=== PATIENT | male | born 1960 | race Caucasian/White ===

== ENCOUNTER 2024-10-08 15:58 | Inpatient (IN) | payer MEDICARE, SELFPAY ==
[2024-10-08 12:48] VITALS: BP 161/62
[2024-10-08 13:17] VITALS: BMI 32.1
[2024-10-08 13:36] LABS: % Basophils 1.1 % (0-2); % Eosinophils 3.1 % (0-6); % Immature Granulocytes 0.3 % (0-0.5); % Lymphocytes 22.3 % (20.5-51.1); % Monocytes 9.5 % (1.7-9.3); % Neutrophils 63.7 % (42.2-75.2); Absolute Basophils 0.1 10^3/uL (0-0.2); Absolute Eosinophils 0.2 10^3/uL (0-0.7); Absolute Lymphocytes 1.5 10^3/uL (1.2-3.4); Absolute Monocytes 0.6 10^3/uL (0.1-0.6); Absolute Neutrophils 4.2 10^3/uL (1.4-6.5); Hematocrit 47.1 % (39.0-52.0); Hemoglobin 17.1 g/dL (13.0-18.0); Mean Corp Hgb Conc. 36.3 g/dL (33.0-37.0); Mean Corpuscular Hgb 36.7 pg (27.0-31.0); Mean Corpuscular Volume 101.1 fL (80.0-94.0); Mean Platelet Volume 8.9 fL (7.4-10.4); Nucleated Red Blood Cells % 0 % (-); Platelet Count 199 10^3/uL (130-400); Red Blood Cell Count 4.66 10^6/uL (4.70-6.10); Red Cell Dist. Width 15.6 % (11.5-14.5); White Blood Cell Count 6.6 10^3/uL (4.8-10.8)
[2024-10-08 13:52] LABS: ALT (SGPT) 45 U/L (0-50); AST (SGOT) 49 U/L (17-59); Albumin 4.1 g/dl (3.5-5.0); Alcohol 39 mg/dl; Alkaline Phosphatase 66 U/L (38-126); Blood Urea Nitrogen 9 mg/dl (9-20); Calcium 9.3 mg/dl (8.4-10.2); Carbon Dioxide 27 mmol/L (22-30); Chloride 104 mmol/L (98-107); Estimated Creatinine Clearance 122 ml/min; Glucose 106 mg/dl (70-99); INR 0.99; PT 13.4 Sec (11.4-14.6); Potassium 3.9 mmol/L (3.5-5.1); Sodium 139 mmol/L (135-145); Total Bilirubin 1.2 mg/dl (0.2-1.3); eGFR > 60.00
--- NOTE | 2024-10-08 13:53 | ED.GENMED ---
History of Present Illness
General
Chief Complaint: Rectal Bleeding
Source: patient
Exam Limitations: none
Time Seen by Provider: 10/08/24 13:31
History of Present Illness
History of Present Illness:
64yoM with a history of tobacco use presenting for evaluation of rectal bleeding. Patient has been having intermittent rectal bleeding over the past year or so. He had 3 episodes of bright red rectal bleeding today. He states the blood was
pouring out of him. He has never had this severe of bleeding before. He also reports shortness of breath primarily with exertion over the past week as well as intermittent lower chest discomfort. He feels lightheaded but denies any syncope.
Additionally, he has been having a nagging pain in his lower abdomen over the past week. He has not seen a PCP in about 30 years. He smokes 1 pack/day and drinks about 5-8 shots of whiskey daily. He has never had a colonoscopy before.
Past History
Past History
ED Past Medical History: None
ED Past Surgical History: None
Social History
Tobacco: Smoker
Phy Exam
General Physical Exam
General Presentation: well appearing and no apparent distress
General Skin: warm and dry
General Habitus: normal
General Mental: alert
ENT Exam
ENT Exam: normocephalic
Cardiovascular Exam
Cardiovascular Exam: regular rate/rhythm and no murmur
Pulmonary Exam
Pulmonary Exam: lungs clear, no respiratory distress, no rales, no crackles and no rhonchi
Gastrointestinal Exam
Gastrointestinal Exam: non tender, soft and other (Abdomen obese. Soft, non-tender in all quadrants. )
Stool: other (No stool obtained on rectal exam. No external hemorrhoids visualized. )
Neurological Exam
Neurological Exam: alert
Josué Coma Scale
Eye Opening: Spontaneous
Verbal Response: Oriented
Motor Response: Obeys Commands
GCS Total Score: 15
Skin Exam
Skin Exam: normal color and warm/dry
Psychiatric Exam
Psychiatric Exam: normal mood/affect
Course
Orders/Labs/Results
Orders:
Orders
10/08/24 12:38
Electrocardiogram (*1) Urgent
Reason for Study: Chest Pain
EKG- Treatment ONCE
10/08/24 13:28
Type+Screen Urgent
Alcohol Urgent
Complete Blood Count/With Diff Urgent
Comprehensive Metabolic Panel Urgent
PTT Urgent
Prothrombin Time Urgent
Troponin I Urgent
10/08/24 13:51
CT Abd/pelvis W Iv Cont Urgent
Comment:
Reason For Exam: lower abd pain, rectal bleeding
CR Chest - 2 Views Urgent
Comment:
Reason For Exam: SOB
10/08/24 14:18
ABO2 Urgent
BBK Wristband Number:
Associate notified that ABO2 has been ordered: [id number]
Date: 10/08/24
Time: 13:50
Director Of Leadership Development ID: [id number]
Abnormal Lab Results
10/08/24
13:28
RBC 4.66 L 10^6/uL
(4.70-6.10)
MCV 101.1 H fL
(80.0-94.0)
MCH 36.7 H pg
(27.0-31.0)
RDW 15.6 H %
(11.5-14.5)
Monocytes % 9.5 H %
(1.7-9.3)
Glucose 106 H mg/dl
(70-99)
10/08/24 13:28
10/08/24 13:28
Vital Signs
Initial and Last Documented VS:
Initial Vital Signs
Temp Pulse Resp BP Pulse Ox
98.3 F 98 16 161/62 98
10/08/24 12:48 10/08/24 12:48 10/08/24 12:48 10/08/24 12:48 10/08/24 12:48
Last Documented Vital Signs
Temp Pulse Resp BP Pulse Ox
98.7 F 86 20 146/81 100
10/08/24 15:28 10/08/24 14:09 10/08/24 14:09 10/08/24 14:09 10/08/24 14:09
MDM/Problems Addressed
Differential Diagnosis Includes:
64yoM here with rectal bleeding. 3 episodes of BRBPR. Also c/o lightheadedness, exertional dyspnea, chest pain, and lower abd discomfort x 1 week. Has not seen a PCP in 30 years. Admits to daily alcohol use. He is mildly hypertensive with otherwise
stable vitals. He is well appearing in no distress. No stool obtained on rectal exam. Differential diagnosis includes but is not limited to: hemorrhoidal bleeding, diverticular bleeding, AVM, malignancy, symptomatic anemia
Initial ED plan: Check cardiac labs, coags, type and screen, EKG, CXR, and CT abdomen.
*EKG
Interpreted by ED Provider?: Yes
EKG Intrepretation Date: 10/08/24
Heart Rate: 96
Rate: normal
Rhythm: sinus
[place]: left axis deviation
Interval: normal interval
QRS Pattern: normal QRS
Ischemia: no ischemia
*Critical Care Note
Total Time (30-74mins, 75-104mins- exclusive of procedures): Not Applicable
Update Note
Update Note:
Hemoglobin WNL at 17.1. Remainder of labs unremarkable. EKG shows NSR without ischemic changes and troponin WNL. CXR is clear. CT abdomen shows mild colitis. Patient had an additional episode of rectal bleeding during ED stay. Given active bleeding
and no reliable outpatient follow-up, will admit for further management.
ED Attending Note
-
Portions of this chart may have been created with voice recognition software.� Occasional wrong word or��sound alike� substitutions may have occurred due to the inherent limitations of voice recognition software.
Discharge Plan
Departure
Patient Disposition: Admit
Date of Disposition: 10/08/24
Time of Disposition: 15:18
Presentation/result/management discussed w/ accepting MD/DO: Hospitalist
Discharge Problem:
Rectal bleeding, Colitis, Shortness of breath
Prescriptions:
No Action
Medical Marijuana
2 puff inhalation DAILYPRN PRN (Reason: STRESS)
Referrals:
NONE,* [Family Provider] -
Interventions
Interventions:
*Risk Screen - Suicide Last Done: 10/08/24 12:50
*General Assessment Last Done: 10/08/24 13:18
*Neglect/Abuse Screening Last Done: 10/08/24 12:50
*ED- Fall Risk Assessment Last Done: 10/08/24 13:18
*ED COVID-19 Vaccine History Last Done: 10/08/24 13:18
EO-Tpkiob-Hfnayrvxdz Assessment Last Done: 10/08/24 13:24
ED- Cardiac Assessment Last Done: 10/08/24 13:24
ED- Pulmonary Assessment Last Done: 10/08/24 13:24
Discharge Date and Time
Print Language: FAROESE
[2024-10-08 14:09] VITALS: BP 146/81
[2024-10-08 14:11] LABS: Troponin I < 0.012 ng/ml
--- NOTE | 2024-10-08 15:53 | HPS.HSE ---
Family Physician
-
Family Physician: * NONE
Chief Complaint
-
bloody diarrhea
History of Present Illness
64-year-old male past medical history of presenting for rectal bleeding. Patient has been having intermittent rectal bleeding/diarrhea for the past day. He had 3 episodes of bright red blood today. He states blood was pouring out of him. He
feels lightheaded but denies passing out. He has been having nagging pain in the bilateral lower abdomen over the past week. Denies any fevers or chills. Denies any recent travel or eating outside food. Denies nausea or vomiting.
He smokes 1 pack of cigarettes per day and drinks 5-8 shots of whiskey daily. He has not seen primary care physician in 30 years. He never had a colonoscopy before.
No recent antibiotic use.
Uses marijuana sometimes.
Medical History
Past Medical History
Past Medical History: Reports None
Past Surgical History: Reports None
Social History
Tobacco: Smoker
Alcohol: Daily
Drug: Marijuana
Family History
Family History: Not pertinent
Allergies / Home Medications
Allergies reflects when Allergies were last updated in [facility].
Home Medications with original date entered in [facility]
Allergy/Medication List:
Allergies
Allergy/AdvReac Type Severity Reaction Status Date / Time
No Known Allergies Allergy Verified 10/08/24 12:52
Home Medications
Medical Marijuana 2 puff inhalation DAILYPRN PRN STRESS 10/08/24
Review of Systems
-
History Source: Patient
A 12 point ROS was completed and negative except as noted: Yes
Constitutional: Reports No Symptoms
EENT: Reports No Symptoms
Respiratory: Reports No Symptoms
Cardiac: Reports No Symptoms
Abdomen/GI: Reports No Symptoms
: Reports See HPI
Musculoskeletal: Reports No Symptoms
Skin: Reports No Symptoms
Neurological: Reports No Symptoms
Endocrine: Reports No Symptoms
Hematologic/Lymphatic: Reports No Symptoms
Psych: Reports No Symptoms
Physical Exam
Vital Signs
Vital Signs
Temp Pulse Resp BP Pulse Ox
98.7 F 86 20 146/81 100
10/08/24 15:28 10/08/24 14:09 10/08/24 14:09 10/08/24 14:09 10/08/24 14:09
Physical Exam
General: Well Developed, Well Nourished and No Apparent Distress
HEENT: NormoCephalic, Moist mucous membranes and Atraumatic
Respiratory: Clear
Cardiac: S1/S2 and Regular Rhythm; No Murmur or Rub
GI: Soft, Non Distended, Normal Bowel Sounds and Tender (lower quadrants); No Organomegaly
Rectal: Deferred by Provider
Musculoskeletal: No Clubbing, No Cyanosis and No Edema
Skin: No Rash
Neuro: Nonfocal/grossly intact
Laboratory Results
-
10/08/24 13:28
10/08/24 13:28
Laboratory Results
PT 13.4 Sec (11.4-14.6) 10/08/24 13:28
INR 0.99 10/08/24 13:28
APTT 26.0 Sec (23.4-35.0) 10/08/24 13:28
Total Bilirubin 1.2 mg/dl (0.2-1.3) 10/08/24 13:28
AST 49 U/L (17-59) 10/08/24 13:28
ALT 45 U/L (0-50) 10/08/24 13:28
Alkaline Phosphatase 66 U/L (38-126) 10/08/24 13:28
Troponin I < 0.012 ng/ml 10/08/24 13:28
Data Reviewed
-
Lab Data: Labs Reviewed by me
Old Records: Reviewed
Impression/Plan
-
IMPRESSION:
PLAN:
# Acute infectious versus ischemic colitis with rectal bleeding
-CT abdomen pelvis shows mild colitis involving the descending and sigmoid colon
-Hemoglobin 17
-N.p.o.
-IV fluids
-Check stool culture
-Zosyn
Active smoker
-Nicotine patch
Daily alcohol use
-Thiamine and folate
-Alcohol withdrawal protocol
Marijuana user
Full code
DVT prophylaxis�SCDs
N.p.o.
[2024-10-08 16:48] VITALS: BP 165/96
[2024-10-08] MEDS: ATIVAN 1 MG PO ×2 (17:05→20:35)
[2024-10-08] MEDS: NSS 1000 IV (17:14)
[2024-10-08] MEDS: ZOSYN 50 IV (17:15)
[2024-10-08 17:23] VITALS: BMI 31.8
[2024-10-08] MEDS: THIAMINE INJECTION 200 MG IV (20:29)
[2024-10-08 23:00] VITALS: BP 138/66
[2024-10-09] MEDS: ZOSYN 50 IV ×4 (00:03→17:04)
[2024-10-09] MEDS: NSS 1000 IV ×2 (05:52→17:04)
[2024-10-09 06:01] LABS: ALT (SGPT) 36 U/L (0-50); AST (SGOT) 36 U/L (17-59); Albumin 3.4 g/dl (3.5-5.0); Alkaline Phosphatase 61 U/L (38-126); Blood Urea Nitrogen 10 mg/dl (9-20); Calcium 8.9 mg/dl (8.4-10.2); Carbon Dioxide 30 mmol/L (22-30); Chloride 103 mmol/L (98-107); Estimated Creatinine Clearance 99 ml/min; Glucose 113 mg/dl (70-99); Potassium 3.9 mmol/L (3.5-5.1); Sodium 137 mmol/L (135-145); Total Bilirubin 1.6 mg/dl (0.2-1.3); eGFR > 60.00
[2024-10-09 06:28] LABS: % Basophils 0.8 % (0-2); % Eosinophils 5.2 % (0-6); % Immature Granulocytes 0.3 % (0-0.5); % Lymphocytes 25.3 % (20.5-51.1); % Monocytes 10.5 % (1.7-9.3); % Neutrophils 57.9 % (42.2-75.2); Absolute Basophils 0.1 10^3/uL (0-0.2); Absolute Eosinophils 0.3 10^3/uL (0-0.7); Absolute Lymphocytes 1.5 10^3/uL (1.2-3.4); Absolute Monocytes 0.6 10^3/uL (0.1-0.6); Absolute Neutrophils 3.5 10^3/uL (1.4-6.5); Hematocrit 37.5 % (39.0-52.0); Hemoglobin 13.3 g/dL (13.0-18.0); Mean Corp Hgb Conc. 35.5 g/dL (33.0-37.0); Mean Corpuscular Hgb 36.4 pg (27.0-31.0); Mean Corpuscular Volume 102.7 fL (80.0-94.0); Mean Platelet Volume 9.6 fL (7.4-10.4); Nucleated Red Blood Cells % 0 % (-); Platelet Count 180 10^3/uL (130-400); Red Blood Cell Count 3.65 10^6/uL (4.70-6.10); Red Cell Dist. Width 15.7 % (11.5-14.5)
[2024-10-09 07:24] VITALS: BP 144/79
--- NOTE | 2024-10-09 07:47 | W.PN.HOSP.TC ---
Today's Communication/Plan
-
See plan
Assessment / Plan
Assessment / Plan
Physical Exam
General: Well Developed, Well Nourished and No Apparent Distress
HEENT: Normocephalic, Moist mucous membranes and Atraumatic
Respiratory: Clear to Auscultation Bilaterally
Cardiac: S1/S2 and Regular Rhythm
GI: Soft, Non Distended, Normal Bowel Sounds and Tender (bilateral lower quadrants)
Musculoskeletal: No Cyanosis and No Edema
Skin: Warm. Dry.
Neuro: AAOx3. Nonfocal/grossly intact.
Assessment/Plan
64-year-old male with past medical history of presenting for rectal bleeding. Patient has been having intermittent rectal bleeding/diarrhea for the about 1 day prior to presentation. He had 3 episodes of bright red blood on the day of presentation.
He stated that blood was pouring out of him and he felt lightheaded but denied passing out. He has been having nagging pain in the bilateral lower abdomen over the past week prior to presentation. Denied any fevers or chills. Denied any recent
travel or eating outside food. Denied nausea or vomiting. He smokes 1 pack of cigarettes per day and drinks 5-8 shots of whiskey daily. He has not seen primary care physician in 30 years. He never had a colonoscopy before. No recent antibiotic
use. Uses marijuana sometimes.
# Acute infectious versus ischemic colitis with rectal bleeding
-CT abdomen pelvis shows mild colitis involving the descending and sigmoid colon
-Patient stated that he has never had a colonoscopy
-Hemoglobin 17 --> 13.3
-Blood transfusion consent has been obtained from the patient, I explained to the patient the risks and benefits of blood transfusion
-Maintain Hgb>7 with PRBC transfusion if needed
-N.p.o. for now
-IV fluids
-Stool culture ordered, follow-up
-Continue Zosyn for now
-Bedrest for now
-GI consulted, appreciate their evaluation and recommendations
#Active smoker
-Nicotine patch
#Daily alcohol use
-Thiamine and folate
-Alcohol withdrawal protocol
#Marijuana user
Full code
DVT prophylaxis�SCDs. No chemical DVT prophylaxis given GI bleed.
N.p.o.
Anticipated Discharge: > 48 hours
Subjective/Interval History
-
Date of Service: October 09, 2024
Patient was seen and examined. He reported another episode of bright red blood per rectum overnight, and is still having some bilateral lower abdominal pain.
Objective Data
-
Labs:
Laboratory Results
10/09/24
05:09
WBC 6.0
Hgb 13.3 D
Hct 37.5 L
Plt Count 180
Sodium 137
Potassium 3.9
Chloride 103
Carbon Dioxide 30
BUN 10
Creatinine 1.1
Glucose 113 H
Calcium 8.9
Total Bilirubin 1.6 H
AST 36
ALT 36
Alkaline Phosphatase 61
Vital Signs:
Vital Signs
Temp Pulse Resp BP Pulse Ox
98.2 F 71 16 144/79 98
10/09/24 07:24 10/09/24 07:24 10/09/24 07:24 10/09/24 07:24 10/09/24 07:24
I&O
10/08/24 10/09/24 10/10/24
06:59 06:59 06:59
Intake Total 1939
Balance 1939
[2024-10-09] MEDS: FOLVITE 1 MG PO (08:22)
[2024-10-09] MEDS: THIAMINE INJECTION 200 MG IV ×2 (08:22→20:14)
[2024-10-09] MEDS: NICODERM TRANSDERMAL 14 MG TRANSDERM (08:23)
[2024-10-09 15:19] VITALS: BP 165/88
[2024-10-09 20:46] LABS: Hematocrit 35.7 % (39.0-52.0)
[2024-10-09 23:00] VITALS: BP 162/85
[2024-10-10] MEDS: ZOSYN 50 IV ×3 (00:28→12:20)
[2024-10-10] MEDS: NSS 1000 IV ×2 (00:29→14:29)
[2024-10-10 06:02] LABS: % Basophils 0.8 % (0-2); % Immature Granulocytes 0.4 % (0-0.5); % Lymphocytes 23.7 % (20.5-51.1); % Monocytes 7.2 % (1.7-9.3); % Neutrophils 61.9 % (42.2-75.2); Absolute Eosinophils 0.3 10^3/uL (0-0.7); Absolute Lymphocytes 1.2 10^3/uL (1.2-3.4); Absolute Monocytes 0.4 10^3/uL (0.1-0.6); Absolute Neutrophils 3.2 10^3/uL (1.4-6.5); Hematocrit 36.6 % (39.0-52.0); Hemoglobin 13.2 g/dL (13.0-18.0); Mean Corp Hgb Conc. 36.1 g/dL (33.0-37.0); Mean Corpuscular Hgb 36.3 pg (27.0-31.0); Mean Corpuscular Volume 100.5 fL (80.0-94.0); Mean Platelet Volume 9.4 fL (7.4-10.4); Nucleated Red Blood Cells % 0 % (-); Platelet Count 163 10^3/uL (130-400); Red Blood Cell Count 3.64 10^6/uL (4.70-6.10); Red Cell Dist. Width 15.2 % (11.5-14.5); White Blood Cell Count 5.1 10^3/uL (4.8-10.8)
[2024-10-10 06:41] LABS: ALT (SGPT) 37 U/L (0-50); AST (SGOT) 45 U/L (17-59); Albumin 3.5 g/dl (3.5-5.0); Alkaline Phosphatase 57 U/L (38-126); Blood Urea Nitrogen 6 mg/dl (9-20); Calcium 8.7 mg/dl (8.4-10.2); Carbon Dioxide 24 mmol/L (22-30); Chloride 105 mmol/L (98-107); Estimated Creatinine Clearance > 125 ml/min; Glucose 96 mg/dl (70-99); Potassium 3.4 mmol/L (3.5-5.1); Sodium 136 mmol/L (135-145); Total Bilirubin 1.4 mg/dl (0.2-1.3); Total Protein 5.9 g/dl (6.3-8.2); eGFR > 60.00
[2024-10-10 07:38] VITALS: BP 134/96
[2024-10-10] MEDS: NICODERM TRANSDERMAL 14 MG TRANSDERM (08:33)
[2024-10-10] MEDS: FOLVITE 1 MG PO (08:33)
[2024-10-10] MEDS: THIAMINE INJECTION 200 MG IV ×2 (08:34→20:51)
[2024-10-10] MEDS: KCL 40 MEQ PO (08:37)
[2024-10-10 08:45] LABS: Direct Bilirubin 0.4 mg/dl (0.0-0.4)
--- NOTE | 2024-10-10 11:48 | W.PN.HOSP.TC ---
Today's Communication/Plan
-
See plan
Assessment / Plan
Assessment / Plan
Physical Exam
General: Well Developed, Well Nourished and No Apparent Distress
HEENT: Normocephalic, Moist mucous membranes and Atraumatic
Respiratory: Clear to Auscultation Bilaterally
Cardiac: S1/S2 and Regular Rhythm
GI: Soft, Non Distended, Normal Bowel Sounds and Tender (bilateral lower quadrants)
Musculoskeletal: No Cyanosis and No Edema
Skin: Warm. Dry.
Neuro: AAOx3. Nonfocal/grossly intact.
Assessment/Plan
64-year-old male with past medical history of presenting for rectal bleeding. Patient has been having intermittent rectal bleeding/diarrhea for the about 1 day prior to presentation. He had 3 episodes of bright red blood on the day of presentation.
He stated that blood was pouring out of him and he felt lightheaded but denied passing out. He has been having nagging pain in the bilateral lower abdomen over the past week prior to presentation. Denied any fevers or chills. Denied any recent
travel or eating outside food. Denied nausea or vomiting. He smokes 1 pack of cigarettes per day and drinks 5-8 shots of whiskey daily. He has not seen primary care physician in 30 years. He never had a colonoscopy before. No recent antibiotic
use. Uses marijuana sometimes.
# Presentation with rectal bleeding, suspected secondary to colitis
# Left-sided colitis with rectal bleeding infectious versus ischemic versus other
-CT abdomen pelvis shows mild colitis involving the descending and sigmoid colon
-Patient stated that he has never had a colonoscopy
-Hemoglobin 17 --> 13.3 --> 13.0 --> 13.2
-Blood transfusion consent has been obtained from the patient, I explained to the patient the risks and benefits of blood transfusion on 10/09/24
-Maintain Hgb>7 with PRBC transfusion if needed
-Continue clear liquids diet
-Stool culture ordered, follow-up --> if stool cultures are negative, then plan for colonoscopy
-Can stop Zosyn given stools leukocytes are negative
-Bedrest for now
-GI consulted, appreciate their evaluation and recommendations
#Elevated indirect bilirubin
#Hepatic steatosis on CT Imaging
-Outpatient follow-up
#Active smoker
-Nicotine patch
#Daily alcohol use
-Thiamine and folate
-Alcohol withdrawal protocol
#Marijuana user
Code Status: Full code
DVT prophylaxis: SCDs. No chemical DVT prophylaxis given GI bleed.
Anticipated Discharge: 24 - 48 hours
Subjective/Interval History
-
Date of Service: October 10, 2024
Patient was seen and examined. He reported brown stools overnight, and mentioned no real bleeding anymore. He still has abdominal pain.
Objective Data
-
Labs:
Laboratory Results
10/10/24
05:33
WBC 5.1
Hgb 13.2
Hct 36.6 L
Plt Count 163
Sodium 136
Potassium 3.4 L
Chloride 105
Carbon Dioxide 24
BUN 6 L
Creatinine 0.8
Glucose 96
Calcium 8.7
Total Bilirubin 1.4 H
AST 45
ALT 37
Alkaline Phosphatase 57
Vital Signs:
Vital Signs
Temp Pulse Resp BP Pulse Ox
97.6 F 71 18 134/96 96
10/10/24 07:38 10/10/24 07:38 10/10/24 07:38 10/10/24 07:38 10/10/24 09:40
I&O
10/09/24 10/10/24 10/11/24
06:59 06:59 06:59
Intake Total 3640 / 3640
Balance 3640 / 3640
--- NOTE | 2024-10-10 12:19 | CM ---
CM reviewed medical records. Patient lives independently Patient denied a history of SNF, DME or VN. Patient uses [facility] for medication .
Patient does not have a PCP at this time. CM encourage patient to go on [facility] website and choose a PCP to follow.
PLAN: Home no needs.
--- NOTE | 2024-10-10 13:34 | CON.GI ---
Consultation
-
Date/Time Consultation Requested: 10/10/24
Date/Time Consultation Performed: 10/10/24
Requesting Provider:
Performing Provider:
Reason for Consultation: Rectal bleeding
Medical History
Chief Complaint / HPI
Chief Complaint: Rectal bleeding
History of Present Illness:
64-year-old male with no significant past medical history presenting with complaints of lower abdominal cramping pain starting a week ago and rectal bleeding starting yesterday. He reports multiple episodes of bright blood per rectum starting
yesterday afternoon, with lower abdominal cramping, felt lightheaded and dizzy. No previous history of abdominal discomfort or rectal bleeding but he did report that for more than a year he would see some bright blood or clots with normal looking
stool with bowel movements on occasion. No nausea or vomiting. Occasional heartburn, does not take medications. No trouble swallowing. Normal bowel movement pattern is 1 formed stool a day, no pushing or straining. No loss of appetite,
unintentional weight loss or NSAID use. In the emergency room hemoglobin is normal.
CT scan of the abdomen and pelvis with IV contrast only 10/09/2024� No obstruction. Unremarkable appendix and terminal ileum. There is a moderate amount of fluid within the proximal and mid colon with underdistention of the left colon which appears
mildly thickened with faint pericolonic stranding suggestive of colitis.
Stool white cells, C. difficile, Cryptosporidium and Giardia negative blood cultures pending.
Never had colonoscopy. No known family history of colon cancer or polyps.
Past Medical History
Past Medical History: None
Social History
Tobacco: Smoker
Alcohol: Daily
Drug: Marijuana
Family History
Family History: Reviewed & Not Pertinent
Allergies / Home Medications
Allergy/AdvReac Type Severity Reaction Status Date / Time
No Known Allergies Allergy Verified 10/08/24 16:48
�Medication �Instructions �Recorded
Medical Marijuana 2 puff inhalation DAILYPRN PRN 10/08/24
STRESS
Review of Systems
-
All other systems: A 12 pt ROS was Negative except as stated above in HPI
Vital Signs
Temp Pulse Resp BP Pulse Ox
97.6 F 71 18 134/96 96
10/10/24 07:38 10/10/24 07:38 10/10/24 07:38 10/10/24 07:38 10/10/24 09:40
Physical Exam
Exam
Respiratory: Clear
Cardiac: S1/S2 and Regular Rhythm
GI: Soft and Tender (Mild discomfort on palpation in the mid abdomen)
Neuro: AO x 3
Results
WBC 5.1 10^3/uL (4.8-10.8) 10/10/24 05:33
Hgb 13.2 g/dL (13.0-18.0) 10/10/24 05:33
Hct 36.6 % (39.0-52.0) L 10/10/24 05:33
MCV 100.5 fL (80.0-94.0) H 10/10/24 05:33
Plt Count 163 10^3/uL (130-400) 10/10/24 05:33
Absolute Neuts (auto) 3.2 10^3/uL (1.4-6.5) 10/10/24 05:33
PT 13.4 Sec (11.4-14.6) 10/08/24 13:28
INR 0.99 10/08/24 13:28
APTT 26.0 Sec (23.4-35.0) 10/08/24 13:28
Sodium 136 mmol/L (135-145) 10/10/24 05:33
Potassium 3.4 mmol/L (3.5-5.1) L 10/10/24 05:33
Chloride 105 mmol/L (98-107) 10/10/24 05:33
Carbon Dioxide 24 mmol/L (22-30) 10/10/24 05:33
BUN 6 mg/dl (9-20) L 10/10/24 05:33
Creatinine 0.8 mg/dL (0.7-1.3) 10/10/24 05:33
Calcium 8.7 mg/dl (8.4-10.2) 10/10/24 05:33
Total Bilirubin 1.4 mg/dl (0.2-1.3) H 10/10/24 05:33
AST 45 U/L (17-59) 10/10/24 05:33
ALT 37 U/L (0-50) 10/10/24 05:33
Alkaline Phosphatase 57 U/L (38-126) 10/10/24 05:33
Diagnostic Image Results:
Prior GI Procedures:
EGD:
Colonoscopy:
Assessment / Plan
-
64-year-old female with no significant past medical history presenting with lower abdominal cramping for a week, diarrhea with rectal bleeding starting yesterday, CT scan showing left-sided colitis, no anemia.
-Left-sided colitis with rectal bleeding, rule out infectious, ischemic versus other
Given stool white cells negative, will hold off on antibiotics.
Await stool cultures.
Currently on clear liquid diet, will continue that.
Monitor H&H and transfuse if needed.
If stool cultures negative, plan for colonoscopy to evaluate.
Smoking cessation, alcohol abstinence reinforced.
-Elevated indirect bilirubin but other LFTs normal.
CT scan showing hepatic steatosis. Needs outpatient follow-up.
-
-
Thank you for consultation and allowing me to participate in the patient's care. Please call the bookkeeper receptionist GI physician during the after hours with any questions or concerns.
[2024-10-10 15:20] VITALS: BP 135/83
[2024-10-10 23:00] VITALS: BP 155/94
[2024-10-11 07:15] VITALS: BP 169/90
--- NOTE | 2024-10-11 07:30 | W.PN.HOSP.TC ---
Today's Communication/Plan
-
Colonoscopy being considered by GI
Assessment / Plan
Assessment / Plan
Physical Exam
General: Well Developed, Well Nourished and No Apparent Distress
HEENT: Normocephalic, Moist mucous membranes and Atraumatic
Respiratory: Clear to Auscultation Bilaterally
Cardiac: S1/S2 and Regular Rhythm
GI: Soft, Non Distended, Normal Bowel Sounds and Nontender (was previously tender at the bilateral lower quadrants)
Musculoskeletal: No Cyanosis and No Edema
Skin: Warm. Dry.
Neuro: AAOx3. Nonfocal/grossly intact.
Assessment/Plan
64-year-old male with past medical history of presenting for rectal bleeding. Patient has been having intermittent rectal bleeding/diarrhea for the about 1 day prior to presentation. He had 3 episodes of bright red blood on the day of presentation.
He stated that blood was pouring out of him and he felt lightheaded but denied passing out. He has been having nagging pain in the bilateral lower abdomen over the past week prior to presentation. Denied any fevers or chills. Denied any recent
travel or eating outside food. Denied nausea or vomiting. He smokes 1 pack of cigarettes per day and drinks 5-8 shots of whiskey daily. He has not seen primary care physician in 30 years. He never had a colonoscopy before. No recent antibiotic
use. Uses marijuana sometimes.
# Presentation with rectal bleeding, suspected secondary to colitis
# Left-sided colitis with rectal bleeding infectious versus ischemic versus other
-CT abdomen pelvis shows mild colitis involving the descending and sigmoid colon
-Patient stated that he has never had a colonoscopy
-Hemoglobin 17 --> 13.3 --> 13.0 --> 13.2 --> 13.8
-Blood transfusion consent has been obtained from the patient, I explained to the patient the risks and benefits of blood transfusion on 10/09/24
-Maintain Hgb>7 with PRBC transfusion if needed
-Continue clear liquids diet for now
-Stool culture ordered, follow-up --> if stool cultures are negative, then plan for colonoscopy
-On 10/10/24, stopped Zosyn given stools leukocytes were negative and after discussion with GI who recommended stopping Zosyn
-Bedrest for now
-GI consulted, appreciate their evaluation and recommendations
#Elevated indirect bilirubin
#Hepatic steatosis on CT Imaging
-Outpatient follow-up
#Active smoker
-Nicotine patch
#Daily alcohol use
-Thiamine and folate
-Alcohol withdrawal protocol
#Marijuana user
Code Status: Full code
DVT prophylaxis: SCDs. No chemical DVT prophylaxis given GI bleed.
Anticipated Discharge: 24 - 48 hours
Subjective/Interval History
-
Date of Service: October 11, 2024
Patient was seen and examined. He denied any pain or any complaints, he said he had a non-bloody bowel movement overnight according to him.
Objective Data
-
Labs:
Laboratory Results
10/11/24
06:00
WBC Pending
Hgb Pending
Hct Pending
Plt Count Pending
Sodium Pending
Potassium Pending
Chloride Pending
Carbon Dioxide Pending
BUN Pending
Creatinine Pending
Glucose Pending
Calcium Pending
Vital Signs:
Vital Signs
Temp Pulse Resp BP Pulse Ox
97.8 F 69 16 169/90 98
10/11/24 07:15 10/11/24 07:15 10/11/24 07:15 10/11/24 07:15 10/11/24 07:15
I&O
10/10/24 10/11/24 10/12/24
06:59 06:59 06:59
Intake Total 3640 / 3640 1220 / 1220
Balance 3640 / 3640 1220 / 1220
[2024-10-11 08:33] LABS: % Basophils 0.8 % (0-2); % Immature Granulocytes 0.4 % (0-0.5); % Monocytes 7.6 % (1.7-9.3); % Neutrophils 60.2 % (42.2-75.2); Absolute Eosinophils 0.3 10^3/uL (0-0.7); Absolute Lymphocytes 1.3 10^3/uL (1.2-3.4); Absolute Monocytes 0.4 10^3/uL (0.1-0.6); Absolute Neutrophils 3.2 10^3/uL (1.4-6.5); Hematocrit 39.2 % (39.0-52.0); Hemoglobin 13.8 g/dL (13.0-18.0); Mean Corp Hgb Conc. 35.2 g/dL (33.0-37.0); Mean Corpuscular Hgb 35.9 pg (27.0-31.0); Mean Corpuscular Volume 102.1 fL (80.0-94.0); Mean Platelet Volume 9.5 fL (7.4-10.4); Nucleated Red Blood Cells % 0 % (-); Platelet Count 181 10^3/uL (130-400); Red Blood Cell Count 3.84 10^6/uL (4.70-6.10); Red Cell Dist. Width 15.8 % (11.5-14.5); White Blood Cell Count 5.3 10^3/uL (4.8-10.8)
[2024-10-11] MEDS: FOLVITE 1 MG PO (09:06)
[2024-10-11] MEDS: THIAMINE INJECTION 200 MG IV (09:07)
[2024-10-11] MEDS: FLUSH (NSS) 2 FLUSH IV (09:09)
[2024-10-11 09:12] LABS: Blood Urea Nitrogen 5 mg/dl (9-20); Calcium 9.3 mg/dl (8.4-10.2); Carbon Dioxide 25 mmol/L (22-30); Estimated Creatinine Clearance 121 ml/min; Glucose 84 mg/dl (70-99); Potassium 4.2 mmol/L (3.5-5.1); Sodium 137 mmol/L (135-145); eGFR > 60.00
[2024-10-11 09:20] LABS: Chloride 105 mmol/L (98-107)
[2024-10-11 15:45] VITALS: BP 164/95
[2024-10-11] MEDS: NICODERM TRANSDERMAL 14 MG TRANSDERM (16:09)
--- NOTE | 2024-10-11 16:22 | W.PN.GI.CBS2 ---
Today's Communication / Plan
-
-Left-sided colitis with rectal bleeding, rule out infectious, ischemic versus other
Given stool white cells negative, cultures, C. difficile negative
Continue clear liquid diet
Monitor H&H and transfuse if needed.
plan for colonoscopy tomorrow
Smoking cessation, alcohol abstinence reinforced.
-Elevated indirect bilirubin but other LFTs normal.
CT scan showing hepatic steatosis. Needs outpatient follow-up.
Assessment / Plan
-
64-year-old female with no significant past medical history presenting with lower abdominal cramping for a week, diarrhea with rectal bleeding starting yesterday, CT scan showing left-sided colitis, no anemia.
-Left-sided colitis with rectal bleeding, rule out infectious, ischemic versus other
Given stool white cells negative, cultures, C. difficile negative
Continue clear liquid diet
Monitor H&H and transfuse if needed.
plan for colonoscopy tomorrow
Smoking cessation, alcohol abstinence reinforced.
-Elevated indirect bilirubin but other LFTs normal.
CT scan showing hepatic steatosis. Needs outpatient follow-up.
Subjective
Subjective
Date of Service: October 11, 2024 patient denies
Patient reports some discomfort in the lower abdomen and had some bloody bowel movements.
Objective
Data Reviewed
Laboratory Data:
Laboratory Results
10/11/24 07:41
10/11/24 07:41
Laboratory Results
PT 13.4 Sec (11.4-14.6) 10/08/24 13:28
INR 0.99 10/08/24 13:28
APTT 26.0 Sec (23.4-35.0) 10/08/24 13:28
Total Bilirubin 1.4 mg/dl (0.2-1.3) H 10/10/24 05:33
AST 45 U/L (17-59) 10/10/24 05:33
ALT 37 U/L (0-50) 10/10/24 05:33
Alkaline Phosphatase 57 U/L (38-126) 10/10/24 05:33
Vital Signs and I&O:
Vital Signs
Temp Pulse Resp BP Pulse Ox
98.9 F 75 18 164/95 99
10/11/24 15:45 10/11/24 15:45 10/11/24 15:45 10/11/24 15:45 10/11/24 15:45
I&O
10/10/24 10/11/24 10/12/24
06:59 06:59 06:59
Intake Total 3640 / 3640 1220 / 1220
Balance 3640 / 3640 1220 / 1220
Physical Exam
Physical Exam
GI: Soft, Non Distended and Non Tender
[2024-10-11] MEDS: GAVILAX 238 GM PO (17:42)
[2024-10-11] MEDS: VITAMIN B1 100 MG PO (20:20)
[2024-10-11 23:00] VITALS: BP 156/84
[2024-10-12 05:45] LABS: % Basophils 0.6 % (0-2); % Eosinophils 6.1 % (0-6); % Immature Granulocytes 0.3 % (0-0.5); % Lymphocytes 24.4 % (20.5-51.1); % Monocytes 10.1 % (1.7-9.3); % Neutrophils 58.5 % (42.2-75.2); Absolute Eosinophils 0.4 10^3/uL (0-0.7); Absolute Lymphocytes 1.5 10^3/uL (1.2-3.4); Absolute Monocytes 0.6 10^3/uL (0.1-0.6); Absolute Neutrophils 3.7 10^3/uL (1.4-6.5); Hemoglobin 13.7 g/dL (13.0-18.0); Mean Corp Hgb Conc. 36.1 g/dL (33.0-37.0); Mean Corpuscular Volume 99.7 fL (80.0-94.0); Mean Platelet Volume 9.4 fL (7.4-10.4); Nucleated Red Blood Cells % 0 % (-); Platelet Count 169 10^3/uL (130-400); Red Blood Cell Count 3.81 10^6/uL (4.70-6.10); Red Cell Dist. Width 15.5 % (11.5-14.5); White Blood Cell Count 6.2 10^3/uL (4.8-10.8)
[2024-10-12] MEDS: GAVILAX 125 GM PO (06:08)
[2024-10-12 06:17] LABS: Blood Urea Nitrogen 6 mg/dl (9-20); Calcium 9.2 mg/dl (8.4-10.2); Carbon Dioxide 25 mmol/L (22-30); Chloride 107 mmol/L (98-107); Estimated Creatinine Clearance 121 ml/min; Glucose 93 mg/dl (70-99); Magnesium 1.9 mg/dl (1.6-2.3); Potassium 3.6 mmol/L (3.5-5.1); Sodium 138 mmol/L (135-145); eGFR > 60.00
[2024-10-12 07:15] VITALS: BP 158/85
--- NOTE | 2024-10-12 08:20 | W.PN.HOSP.TC ---
Today's Communication/Plan
-
Colonoscopy done today
If tolerates diet well, without any further bleeding or abdominal pain, can be discharged tomorrow (not today, as per GI recommendation)
Assessment / Plan
Assessment / Plan
Physical Exam
General: Well Developed, Well Nourished and No Apparent Distress
HEENT: Normocephalic, Moist mucous membranes and Atraumatic
Respiratory: Clear to Auscultation Bilaterally
Cardiac: S1/S2 and Regular Rhythm
GI: Soft, Non Distended, Normal Bowel Sounds and Nontender (was previously tender at the bilateral lower quadrants)
Musculoskeletal: No Cyanosis and No Edema
Skin: Warm. Dry.
Neuro: AAOx3. Nonfocal/grossly intact.
Assessment/Plan
64-year-old male with past medical history of presenting for rectal bleeding. Patient has been having intermittent rectal bleeding/diarrhea for the about 1 day prior to presentation. He had 3 episodes of bright red blood on the day of presentation.
He stated that blood was pouring out of him and he felt lightheaded but denied passing out. He has been having nagging pain in the bilateral lower abdomen over the past week prior to presentation. Denied any fevers or chills. Denied any recent
travel or eating outside food. Denied nausea or vomiting. He smokes 1 pack of cigarettes per day and drinks 5-8 shots of whiskey daily. He has not seen primary care physician in 30 years. He never had a colonoscopy before. No recent antibiotic
use. Uses marijuana sometimes.
# Presentation with rectal bleeding, suspected secondary to colitis
# Left-sided colitis with rectal bleeding infectious versus ischemic versus other
# Six 2 to 4 mm polyps in the sigmoid colon, in the transverse colon, in the ascending colon and in the cecum, removed with a jumbo cold forceps - resected and retrieved (colonoscopy 10/12/24)
# Diverticulosis in the sigmoid colon - erythematous mucosa in the sigmoid colon. Biopsied (colonoscopy 10/12/24)
# One large polyp in the descending colon. Biopsied and Tattooed (colonoscopy 10/12/24)
# Internal hemorrhoids (colonoscopy 10/12/24)
-CT abdomen pelvis showed mild colitis involving the descending and sigmoid colon
-Patient stated that he has never had a colonoscopy
-Hemoglobin 17 --> 13.3 --> 13.0 --> 13.2 --> 13.8
-Blood transfusion consent has been obtained from the patient, I explained to the patient the risks and benefits of blood transfusion on 10/09/24
-Maintain Hgb>7 with PRBC transfusion if needed
-Low residue diet --> advance as tolerated to regular diet
-Colonoscopy findings are above, await pathology
-Repeat colonoscopy at appointment to be scheduled pending pathology - suspect will need EMR with Dr. Strong and needs outpatient follow-up for liver
-Stool culture ordered --> negative, colonoscopy done
-On 10/10/24, stopped Zosyn given stools leukocytes were negative and after discussion with GI who recommended stopping Zosyn
-Bedrest for now
-GI consulted, appreciate their evaluation and recommendations
#Elevated indirect bilirubin
#Hepatic steatosis on CT Imaging
-Outpatient follow-up
#Active smoker
-Nicotine patch
#Daily alcohol use
-Thiamine and folate
-Alcohol withdrawal protocol
#Marijuana user
Code Status: Full code
DVT prophylaxis: SCDs. No chemical DVT prophylaxis given GI bleed.
Anticipated Discharge: Within 24 hours
Subjective/Interval History
-
Date of Service: October 12, 2024
Patient was seen and examined. He denied any complaints.
Objective Data
-
Labs:
Laboratory Results
10/12/24
05:22
WBC 6.2
Hgb 13.7
Hct 38.0 L
Plt Count 169
Sodium 138
Potassium 3.6
Chloride 107
Carbon Dioxide 25
BUN 6 L
Creatinine 0.9
Glucose 93
Calcium 9.2
Vital Signs:
Vital Signs
Temp Pulse Resp BP Pulse Ox
97.8 F 70 16 158/85 99
10/12/24 07:15 10/12/24 07:15 10/12/24 07:15 10/12/24 07:15 10/12/24 07:15
I&O
10/11/24 10/12/24 10/13/24
06:59 06:59 06:59
Intake Total 1220 / 1220 1680 / 1680
Balance 1220 / 1220 1680 / 1680
[2024-10-12 09:58] VITALS: BP 133/92; BP_SYST 12
[2024-10-12 10:13] VITALS: BP 93/75; BP_SYST 16
--- NOTE | 2024-10-12 10:14 | W.PN.UPDATE ---
Update Note
Progress Note Update
Will schedule follow up with RISHI Morris 11/18 11:30 pt aware.
[2024-10-12] MEDS: FOLVITE 1 MG PO (10:42)
[2024-10-12] MEDS: VITAMIN B1 100 MG PO ×2 (10:42→20:35)
[2024-10-12] MEDS: NICODERM TRANSDERMAL 14 MG TRANSDERM (11:44)
[2024-10-12 15:50] VITALS: BP 175/88
--- NOTE | 2024-10-12 16:08 | CM ---
Pt had colonoscopy today.
Offered VN he declined need.
He said his daughter will drive him [place].
IMM reviewed signed on chart.
PLAN Home no needs
[2024-10-12 23:25] VITALS: BP 161/85
[2024-10-13 07:29] VITALS: BP 147/78
--- NOTE | 2024-10-13 07:53 | W.PN.HOSP.TC ---
Today's Communication/Plan
-
Discharge today
Assessment / Plan
Assessment / Plan
Physical Exam
General: Well Developed, Well Nourished and No Apparent Distress
HEENT: Normocephalic, Moist mucous membranes and Atraumatic
Respiratory: Clear to Auscultation Bilaterally
Cardiac: S1/S2 and Regular Rhythm
GI: Soft, Non Distended, Normal Bowel Sounds and Nontender (was previously tender at the bilateral lower quadrants)
Musculoskeletal: No Cyanosis and No Edema
Skin: Warm. Dry.
Neuro: AAOx3. Nonfocal/grossly intact.
Assessment/Plan
64-year-old male with past medical history of presenting for rectal bleeding. Patient has been having intermittent rectal bleeding/diarrhea for the about 1 day prior to presentation. He had 3 episodes of bright red blood on the day of presentation.
He stated that blood was pouring out of him and he felt lightheaded but denied passing out. He has been having nagging pain in the bilateral lower abdomen over the past week prior to presentation. Denied any fevers or chills. Denied any recent
travel or eating outside food. Denied nausea or vomiting. He smokes 1 pack of cigarettes per day and drinks 5-8 shots of whiskey daily. He has not seen primary care physician in 30 years. He never had a colonoscopy before. No recent antibiotic
use. Uses marijuana sometimes.
# Presentation with rectal bleeding, suspected secondary to colitis
# Left-sided colitis with rectal bleeding infectious versus ischemic versus other
# Six 2 to 4 mm polyps in the sigmoid colon, in the transverse colon, in the ascending colon and in the cecum, removed with a jumbo cold forceps - resected and retrieved (colonoscopy 10/12/24)
# Diverticulosis in the sigmoid colon - erythematous mucosa in the sigmoid colon. Biopsied (colonoscopy 10/12/24)
# One large polyp in the descending colon. Biopsied and Tattooed (colonoscopy 10/12/24)
# Internal hemorrhoids (colonoscopy 10/12/24)
-CT abdomen pelvis showed mild colitis involving the descending and sigmoid colon
-Patient stated that he has never had a colonoscopy
-Hemoglobin 17 --> 13.3 --> 13.0 --> 13.2 --> 13.8
-Blood transfusion consent has been obtained from the patient, I explained to the patient the risks and benefits of blood transfusion on 10/09/24
-Maintain Hgb>7 with PRBC transfusion if needed
-Low residue diet --> advance as tolerated to regular diet
-Colonoscopy findings are above, await pathology
-Repeat colonoscopy at appointment to be scheduled pending pathology - suspect will need EMR with Dr. Strong and needs outpatient follow-up for liver
-Stool culture ordered --> negative, colonoscopy done
-On 10/10/24, stopped Zosyn given stools leukocytes were negative and after discussion with GI who recommended stopping Zosyn
-Bedrest for now
-GI consulted, appreciate their evaluation and recommendations
#Elevated indirect bilirubin
#Hepatic steatosis on CT Imaging
-Outpatient follow-up
#Active smoker
-Nicotine patch
#Daily alcohol use
-Thiamine and folate
-Alcohol withdrawal protocol
#Marijuana user
Code Status: Full code
DVT prophylaxis: SCDs. No chemical DVT prophylaxis given GI bleed.
More than 30 minutes spent in discharge including
Final examination of the patient
Summarizing hospital stay
Instructions for continuing care to all relevant caregivers
Preparation of discharge records, prescriptions, and referral forms
Total time spent (in minutes): 38
Anticipated Discharge: Today
Subjective/Interval History
-
Date of Service: October 13, 2024
Patient was seen and examined. He reported having a normal bowel movement and wants to go home; he is tolerating his diet as well.
Objective Data
-
Labs:
Laboratory Results
10/13/24
06:00
WBC Pending
Hgb Pending
Hct Pending
Plt Count Pending
Sodium Pending
Potassium Pending
Chloride Pending
Carbon Dioxide Pending
BUN Pending
Creatinine Pending
Glucose Pending
Calcium Pending
Vital Signs:
Vital Signs
Temp Pulse Resp BP Pulse Ox
98.9 F 58 14 147/78 99
10/13/24 07:29 10/13/24 07:29 10/13/24 07:29 10/13/24 07:29 10/13/24 07:29
I&O
10/12/24 10/13/24 10/14/24
06:59 06:59 06:59
Intake Total 1680 / 1680 1280 / 1280
Balance 1680 / 1680 1280 / 1280
[2024-10-13] MEDS: VITAMIN B1 100 MG PO (08:42)
[2024-10-13] MEDS: NICODERM TRANSDERMAL 14 MG TRANSDERM (08:42)
[2024-10-13] MEDS: FOLVITE 1 MG PO (08:42)
[2024-10-13 09:19] LABS: % Basophils 0.7 % (0-2); % Immature Granulocytes 0.2 % (0-0.5); % Lymphocytes 23.7 % (20.5-51.1); % Monocytes 8.3 % (1.7-9.3); % Neutrophils 61.1 % (42.2-75.2); Absolute Eosinophils 0.4 10^3/uL (0-0.7); Absolute Lymphocytes 1.4 10^3/uL (1.2-3.4); Absolute Monocytes 0.5 10^3/uL (0.1-0.6); Absolute Neutrophils 3.7 10^3/uL (1.4-6.5); Hematocrit 39.7 % (39.0-52.0); Hemoglobin 14.2 g/dL (13.0-18.0); Mean Corp Hgb Conc. 35.8 g/dL (33.0-37.0); Mean Corpuscular Hgb 36.1 pg (27.0-31.0); Mean Platelet Volume 9.8 fL (7.4-10.4); Nucleated Red Blood Cells % 0 % (-); Platelet Count 191 10^3/uL (130-400); Red Blood Cell Count 3.93 10^6/uL (4.70-6.10); Red Cell Dist. Width 15.7 % (11.5-14.5)
[2024-10-13 10:31] LABS: Blood Urea Nitrogen 8 mg/dl (9-20); Calcium 9.4 mg/dl (8.4-10.2); Carbon Dioxide 25 mmol/L (22-30); Chloride 106 mmol/L (98-107); Estimated Creatinine Clearance 121 ml/min; Glucose 100 mg/dl (70-99); Potassium 3.8 mmol/L (3.5-5.1); Sodium 139 mmol/L (135-145); eGFR > 60.00
--- NOTE | 2024-10-13 12:11 | W.PN.GI.CBS2 ---
Today's Communication / Plan
-
discharge planning gi signing off
Assessment / Plan
-
64-year-old female with no significant past medical history presenting with lower abdominal cramping for a week, diarrhea with rectal bleeding starting yesterday, CT scan showing left-sided colitis, no anemia. Underwent cscope yesterday - tics,
polyps, erythema including one large polyp.
Recommendations:
- follow up path
- likely will need EMR with Dr. Strong
- outpatient GI appt given to pt for hepatic steatosis and to follow up with diarrhea and rectal bleeding (currently resolved)
Smoking cessation, alcohol abstinence reinforced.
Discharge planning
GI signing off please call with ?s
Subjective
Subjective
Date of Service: October 13, 2024
pt feels well no complaints
Objective
Data Reviewed
Laboratory Data:
Laboratory Results
10/13/24 08:05
10/13/24 08:05
Laboratory Results
PT 13.4 Sec (11.4-14.6) 10/08/24 13:28
INR 0.99 10/08/24 13:28
APTT 26.0 Sec (23.4-35.0) 10/08/24 13:28
Magnesium 1.9 mg/dl (1.6-2.3) 10/12/24 05:22
Total Bilirubin 1.4 mg/dl (0.2-1.3) H 10/10/24 05:33
AST 45 U/L (17-59) 10/10/24 05:33
ALT 37 U/L (0-50) 10/10/24 05:33
Alkaline Phosphatase 57 U/L (38-126) 10/10/24 05:33
Vital Signs and I&O:
Vital Signs
Temp Pulse Resp BP Pulse Ox
98.9 F 58 14 147/78 99
10/13/24 07:29 10/13/24 07:29 10/13/24 07:29 10/13/24 07:29 10/13/24 07:29
I&O
10/12/24 10/13/24 10/14/24
06:59 06:59 06:59
Intake Total 1680 / 1680 1280 / 1280
Balance 1680 / 1680 1280 / 1280
Physical Exam
Physical Exam
GI: Non Distended and Non Tender
--- NOTE | 2024-10-13 13:37 | W.DCSUMMARY ---
Discharge Summary
Discharge Data
Date of Admission: 10/08/24
Date of Discharge: 10/13/24
Total time spent discharging patient (in min): 38
-
Pending Results: Yes
Additional Pending Results:
Biopsy results from Colonoscopy
Hospital Course
64 year-old male presented with rectal bleeding, described as bright red blood pouring out of him, as well as pain in his bilateral lower abdomen. He also reported lightheadedness but denied passing out. CT of the Abdomen Pelvis showed mild colitis
involving the descending and sigmoid colon. Patient was started on Zosyn antibiotics and stool studies including stool culture were ordered. Patient reported he never had a colonoscopy before. Patient's hemoglobin remained within normal range and
patient did not need any red blood cell transfusion. Gastroenterology was consulted and mentioned that since patient's stool white blood cells were negative, antibiotics could be stopped. Patient' stool cultures and C. diff came back as negative.
Colonoscopy showed polyps, diverticulosis in the sigmoid colon and erythematous mucosa in the sigmoid colon. Patient tolerated a diet, had normal bowel movement with no further bleeding and was stable for discharge.
Discharge Plan
-
Patient Disposition: Home (Routine Discharge)
Discharge Diagnosis/Procedures: # Presentation with rectal bleeding, suspected secondary to colitis
# Left-sided colitis with rectal bleeding infectious versus ischemic versus other
# Six 2 to 4 mm polyps in the sigmoid colon, in the transverse colon, in the ascending colon and in the cecum, removed with a jumbo cold
forceps - resected and retrieved (colonoscopy 10/12/24)
# Diverticulosis in the sigmoid colon - erythematous mucosa in the sigmoid colon. Biopsied (colonoscopy 10/12/24)
# One large polyp in the descending colon. Biopsied and Tattooed (colonoscopy 10/12/24)
# Internal hemorrhoids (colonoscopy 10/12/24)
# Elevated indirect bilirubin
# Hepatic steatosis on CT Imaging
# Active smoker
# Daily alcohol use
# Marijuana user
CT Abdomen Pelvis Results (as per radiologist's report):
'FINDINGS:
LOWER CHEST: Lung bases clear. No pleural effusion.
LIVER: Decreased attenuation consistent with steatosis. No focal lesions.
GALLBLADDER: Cholelithiasis.
BILE DUCTS: Within normal limits.
PANCREAS: Within normal limits.
SPLEEN: Within normal limits.
ADRENALS: Within normal limits.
KIDNEYS/URETERS: No hydronephrosis or nephrolithiasis. Bilateral renal cysts. A couple of subcentimeter cysts appear mildly complex with attenuation greater than simple fluid.
BOWEL: No obstruction. Unremarkable appendix and terminal ileum. There is a moderate amount of fluid within the proximal and mid colon with underdistention of the left colon which appears mildly thickened with faint pericolonic stranding suggestive
of colitis.
PERITONEUM: No ascites or free air.
REPRODUCTIVE: Mildly enlarged prostate gland with central coarse calcifications.
BLADDER: Within normal limits.
VESSELS: Non-aneurysmal abdominal aorta.
RETROPERITONEUM: No retroperitoneal or pelvic lymphadenopathy.
ABDOMINAL WALL: Small fat-containing umbilical hernia.
BONES: No suspicious lesions. Degenerative disc disease at L4-5. Irregular appearance of the left tissue tuberosity with calcific lesion within the adjacent soft tissue suggestive of prior injury.
IMPRESSION:
1. Findings compatible with a mild colitis involving the descending and sigmoid colon. Small amount of fluid within the more proximal colon. No free fluid within the abdomen or pelvis or free air.
2. Hepatic steatosis.
3. Small bilateral renal cysts, including several of which do not appear simple in nature, though limited evaluation given small size.
4. Additional findings above.'
Condition: Good
Diet: Low Residue
Activity: As tolerated
Activity Restrictions/Additional Instructions:
Repeat colonoscopy at appointment to be scheduled pending pathology - suspect will need EMR with Dr. Strong and needs outpatient follow-up for liver/hepatic steatosis
Referrals:
Deyanira Marrero CRNP [Specified Professional Personl] - 11/18/24 11:30 am (Please call to reschedule if you can not keep this appointment. If your insurance requires a referral please contact your primary care physician prior to your
appointment. )
NONE,* [Family Provider] - in less than 1 week
Additional Discharge Medication Instructions: Folic Acid, Thiamine and Nicotine Patch are new medications.
Prescriptions:
New
folic acid 1 mg Tablet
1 mg PO DAILY Qty: 14 0RF
nicotine 14 mg/24 hr Patch 24 Hour
14 mg transdermal DAILY Qty: 28 0RF
thiamine mononitrate (vit B1) 100 mg Tablet
100 mg PO DAILY Qty: 30 0RF
Held
Medical Marijuana
2 puff inhalation DAILYPRN PRN (Reason: STRESS)
Hold Instructions: Resume on 10/20/24. Discuss with your outpatient whether you should resume this, and if so, when you should resume it.
Discharge Orders:
Discharge Patient (As Directed); Ordered 10/13/24
Ordered By: Ino Bowman
Discharge Date and Time
Discharge Date/Time: 10/13/24 13:50
Print Language: MONGOLIAN
[2024-10-13 13:45] VITALS: BP 140/76
--- NOTE | 2024-10-13 14:19 | CM ---
MD entered order for discharge.
Pt said ready for dc.
Family will drive him home . Declined VN need.
PLAN Home no needs
== END 2024-10-13 13:50 | disposition home or self-care (01) | DRG 386 ==
LOC: 3 WEST ACU 15:58
PROVIDERS: Emergency Medicine; Internal Medicine Gastroenterology; ADMITTING PHYSICIAN Hospitalist; ATTENDING PHYSICIAN Hospitalist; CONSULT PHYSICIAN Internal Medicine Gastroenterology; EMERGENCY PHYSICIAN Emergency Medicine
PROC: 0DBN8ZX Excision of Sigmoid Colon, Via Natural or Artificial Opening Endoscopic, Diagnostic (ICD-10-PCS; 2024-10-12)
PROC: 0DBM8ZX Excision of Descending Colon, Via Natural or Artificial Opening Endoscopic, Diagnostic (ICD-10-PCS; 2024-10-12)
PROC: 0DBH8ZZ Excision of Cecum, Via Natural or Artificial Opening Endoscopic (ICD-10-PCS; 2024-10-12)
PROC: 0DBN8ZZ Excision of Sigmoid Colon, Via Natural or Artificial Opening Endoscopic (ICD-10-PCS; 2024-10-12)
PROC: 0DBL8ZZ Excision of Transverse Colon, Via Natural or Artificial Opening Endoscopic (ICD-10-PCS; 2024-10-12)
PROC: 0DBK8ZZ Excision of Ascending Colon, Via Natural or Artificial Opening Endoscopic (ICD-10-PCS; 2024-10-12)
DX: K51.511 Left sided colitis with rectal bleeding (principal); K62.5 Hemorrhage of anus and rectum; F17.210 Nicotine dependence, cigarettes, uncomplicated; F10.10 Alcohol abuse, uncomplicated; K76.0 Fatty (change of) liver, not elsewhere classified; K57.30 Diverticulosis of large intestine without perforation or abscess without bleeding; K63.89 Other specified diseases of intestine; D12.0 Benign neoplasm of cecum; D12.2 Benign neoplasm of ascending colon; D12.3 Benign neoplasm of transverse colon; K64.0 First degree hemorrhoids; D12.5 Benign neoplasm of sigmoid colon; D12.4 Benign neoplasm of descending colon; Z60.2 Problems related to living alone
CPT/HCPCS: 88305; 71046; 74177; 80048; 80053; 82077; 82248; 83735; 84484; 85014; 85018; 85025; 85610; 85730; 86850; 86900; 86901; 87045; 87046; 87077; 87324; 87328; 87329; 87427; 87449; 89055; 93005; 99285; Q9967

== ENCOUNTER 2025-01-25 06:08 | Day surgery (SDC) | payer MEDICARE, SELFPAY ==
[2025-01-25 11:17] VITALS: BMI 31.6
[2025-01-25 11:23] VITALS: BMI 31.6
[2025-01-25 11:24] VITALS: BP 169/100
[2025-01-25 11:25] VITALS: BP 175/99
[2025-01-25 16:27] VITALS: BP 150/73
[2025-01-25 16:30] VITALS: BP 149/81
[2025-01-25 16:45] VITALS: BP 147/82
[2025-01-25 16:55] VITALS: BP 171/90
== END 2025-01-25 17:05 | disposition home or self-care (01) ==
LOC: SDS 06:08
PROVIDERS: ATTENDING PHYSICIAN Internal Medicine Gastroenterology
DX: C18.7 Malignant neoplasm of sigmoid colon (principal); D12.5 Benign neoplasm of sigmoid colon; K63.5 Polyp of colon; K64.0 First degree hemorrhoids
CPT/HCPCS: 45390; 45385; 88305; 88342

== ENCOUNTER → 2025-05-10 06:53 | Outpatient (REF) | payer MEDICARE, SELFPAY | LOC: RAD 06:53 | PROVIDERS: ATTENDING PHYSICIAN Surgery | DX: C18.7 Malignant neoplasm of sigmoid colon (principal) | CPT/HCPCS: 71260; 74177; Q9967 ==